=== PATIENT | female | born 2000 | race Caucasian/White ===

== ENCOUNTER 2020-08-23 13:23 | Emergency (ER) | payer OTHER ==
--- OUTSIDE RECORDS SUMMARY | 2020-08-23 13:27 | XMS REPORT | Continuity of Care Document ---
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 Family History Family Member Diagnosis Comments Start Date Stop Date Source Mother Family history of [facility] [place] Bipolar affective Physici ans disorder in remission Social History Smoking Status Start Date Stop Date Source Never smoker [facility] Medications Ordered Filled Start Stop Current Ordering Indication Dosage Frequency Signature Comments Components Source Medication Medication Date Date Medication? Clinician (SIG) Name Name Citalopram Citalopram 2017-05 Yes HALEY Take one Univers Hydrobromid Hydrobromid 0-16 SHAILA and half ity of e 20 MG e 20 MG 00:00: M.D. tabs daily [place] Oral Tablet Oral Tablet 00 for P hysici anxiety ans Vital Signs Vital Name Observation Time Observation Value Comments Source BP Systolic 2018-03-02 98 mm[Hg] Location: [facility] 10:07:00 Position: [place] Physician s Sitting BP Diastolic 2018-03-02 62 mm[Hg] Location: [facility] 10:07:00 Position: [place] Physician s Sitting Height 2018-03-02 61.25 [in_us] [facility] 10:07:00 [place] Physician s Weight 2018-03-02 41.7 kg University 10:07:00 [place] Physician s Body Mass Index 2018-03-02 17.23 kg/m2 University o f Calculated 10:07:00 [place] Physician s Heart Rate 2018-03-02 75 /min [facility] of 10:07:00 [place] Physician s Respiration Rate 2018-03-02 20 /min Quality: Normal Universi ty of 10:07:00 [place] Physician s BP Systolic 2017-10-20 102 mm[Hg] Location: [facility] :27:00 Position: [place] Physician s Sitting BP Diastolic 2017-10-20 70 mm[Hg] Location: [facility] :27:00 Position: [place] Physician s Sitting Height 2017-10-20 60.43 [in_us] [facility] 10:27:00 [place] Physician s Weight 2017-10-20 91.8 [lb_av] University 10:27:00 [place] Physician s Body Mass Index 2017-10-20 17.67 kg/m2 University o f Calculated 10:27:00 [place] Physician s Heart Rate 2017-10-20 75 /min University 10:27:00 [place] Physician s Respiration Rate 2017-10-20 18 /min Quality: Normal Universi ty of 10:27:00 [place] Physician s BP Systolic 2017-06-22 127 mm[Hg] Location: [facility] 09:47:00 Position: [place] Physician s Sitting BP Diastolic 2017-06-22 70 mm[Hg] Location: [facility] 09:47:00 Position: [place] Physician s Sitting Height 2017-06-22 60.43 [in_us] [facility] of 09:47:00 [place] Physician s Weight 2017-06-22 90 [lb_av] University 09:47:00 [place] Physician s Body Mass Index 2017-06-22 17.33 kg/m2 University o f Calculated 09:47:00 [place] Physician s Temperature 2017-06-22 97.7 [degF] University :47:00 [place] Phys[facility] s Heart Rate 2017-06-22 71 /min University :47:00 [place] Physician s Respiration Rate 2017-06-22 14 /min [facility] :47:00 [place] Physician s Procedures This patient has no known procedures. Encounters Start End Encounter Admission Attending Care Care Encounter Source Date/Time Date/Time Type Type Clinicians Facility Department ID 2020-08-21 2020-08-21 Emergency [facility] [id number] [place] 00:00:00 00:00:00 [place] [address] 2020-08-152020-08-15 Outpatient HEALY, [facility] [id number] Access 08:00:00 08:00:00 [facility] 2020-08-15 2020-08-15 Outpatient HEALY, [facility] [id number] Access 00:00:00 00:00:00 [facility] 2020-08-07 2020-08-07 Outpatient HEALY, [facility] [id number] Access 12:30:00 12:30:00 [facility] 2020-07-30 2020-07-30 Outpatient HEALY, [facility] [id number] Access 12:00:00 12:00:00 [facility] 2020-07-30 2020-07-30 Outpatient HEALY, [facility] [id number] Access 00:00:00 00:00:00 [facility] 2018-03-02 2018-03-02 [id number] Univers 10:00:00 10:00:00 t; HALEY Multi-Speci i ty of Matthias LINTON [facility] Diamond DE LEON Physicdiamond [address] 2018-01-20 2018-01-20 Cristal LINTON [facility] [id number] Univers 09:30:00 09:30:00 t; crystal DE LEON M.D. [place] Jatinder DE LEON M.D. ans 2017-10-20 2017-10-20 Cristal LINTON [facility] [id number] Univers 10:30:00 10:30:00 t; HALEY Multi[facility]Speci [facility] [place] Diamond DE LEON Physici M.D. [address] 2017-06-22 2017-06-22 [facility] [id number] Univers 09:30:00 09:30:00 t; HALEY Multi-Speci i ty of Matthias LINTON [facility] Diamond DE LEON [address]icdiamond [address] ans 2017-05-19 2017-05-19 AFSANEH Singletary [facility] [id number] Univers 08:30:00 08:30:00 t; JAVON BHATT [facility] Physici ans 2016-12-30 2016-12-30 Cristal LINTON [facility] [id number] Univers 10:00:00 10:00:00 t; crystal DE LEON M.D. [place] Jatinder DE LEON M.D. ans 2016-12-01 2016-12-01 Cristal LINTON, AFSANEH UTP [id number] Univers 11:30:00 11:30:00 t; crystal DE LEON M.D. [place] Jatinder DE LEON M.D. ans 2016-10-29 2016-10-29 Cristal LINTON, [facility] UTP [id number] Univers 09:30:00 09:30:00 t; crystal DE LEON M.D. [place] Jatinder DE LEON M.D. ans 2016-09-01 2016-09-01 Cristal LINTON, [facility] UTP [id number] Univers 09:30:00 09:30:00 t; crystal DE LEON M.D. [place] Jatinder DE LEON M.D. ans 2016-07-02 2016-07-02 Cristal LINTON, [facility] UTP [id number] Univers 10:30:00 10:30:00 t; crystal DE LEON M.D. [place] Jatinder DE LEON M.D. ans 2016-06-09 2016-06-09 Cristal LINTON, [facility] UTP [id number] Univers 10:00:00 10:00:00 t; crystal DE LEON M.D. [place] Jatinder DE LEON M.D. ans 2016-05-21 2016-05-21 Cristal LINTON [facility] UTP [id number] Univers 11:00:00 11:00:00 t; crystal DE LEON M.D. [place] Jatinder DE LEON M.D. ans 2016-04-21 2016-04-21 Cristal LINTON, AFSANEH UTP [id number] Univers 10:30:00 10:30:00 t; crystal DE LEON M.D. [place] ALLISON, Physici M.D. ans 2016-03-31 2016-03-31 Cristal LINTON, AFSANEH UTP [id number] Univers 11:30:00 11:30:00 t; crystal DE LEON M.D. [place] Jatinder DE LEOND. ans 2016-03-18 2016-03-18 [facility] UTP [id number] Univers 09:30:00 09:30:00 t; crystal DE LEON M.D. [place] ALLISON, Physici M.D. [facility] 2016-02-26 2016-02-26 Valeriejessica AFSANEH LINTON UTP [id number] Univers 11:30:00 11:30:00 t; crystal DE LEON M.D. [place] ALLISON, Physici M.D. [facility] 2016-02-18 2016-02-18 [facility] UTP [id number] Univers 13:00:00 13:00:00 t; crystal DE LEON M.D. [place] ALLISON, Physici M.D. [facility] Results This patient has no known results.
[2020-08-23 13:55] LABS: Absolute Lymphocytes (CBC) 2.8 K/uL (0.7-4.9); Basophils % 0.5 % (0-1.3); Hematocrit 35.3 % (36.0-45.0); Lymphocytes % 29.2 % (15.3-44.8); MPV 8.5 fL (7.6-11.3); RBC Red Blood Cell Count 3.91 M/uL (3.86-4.86)
[2020-08-23 14:36] LABS: BUN Blood Urea Nitrogen 9 mg/dL (7-18); Bicarbonate 22 mmol/L (21-32); Glucose Level 96 mg/dL (74-106); HCG, Quantitative 3468 mIU/mL (1-3); Potassium 3.6 mmol/L (3.5-5.1); Sodium Level 138 mmol/L (136-145)
[2020-08-23] MEDS ORDERED: MORPHINE 4 MG/ML SYR ONE (14:38)
[2020-08-23] MEDS ORDERED: ONDANSETRON 4 MG/2 ML VIAL ONE (14:38)
--- NOTE | 2020-08-23 15:47 | RAD REPORT ---
EXAM DESCRIPTION: US - OB Limited - 08/23/2020 3:09 pm CLINICAL HISTORY: VAGINAL BLEEDING Cramping and pelvic pain. COMPARISON: <Comparisons> FINDINGS: A limited examination was requested by the emergency room physician. Cystic areas are seen within the fundal endometrium. The endometrial stripe measures 23 mm. There is a diffuse heterogenous appearance to the entire endometrium throughout the canal or the level of the cervix. Both ovaries are normal in size, shape and echotexture. The right ovary measures 1.6 x 1.5 cm. Left o vary measures 2.4 x 2.3 cm. Polypoid lesion is present along the dependent portion of the bladder measuring 27 x 24 mm. IMPRESSION: A normal IUP is not seen. Multi cystic abnormality of the endometrium is seen which rais es concern for molar . Recommend correlation with HCG levels. Polypoid lesion along the dependent portion of the bladder measures 27 x 24 mm. This could represent debris, blood clot or mass. Direct visualization would be suggested for further evaluation.
[2020-08-23] MEDS ORDERED: OXYTOCIN/LR 20 UNIT/1,000 ML BAG IV SCH (17:00)
[2020-08-23] MEDS ORDERED: METHYLERGONOVINE 0.2MG/ML AMP IM ONE ×2 (17:00→17:08)
--- NOTE | 2020-08-23 19:03 | ER ---
Nurse's Notes [facility] Name: Jimena Rodriguez Age: 20 yrs Sex: Female : 2000 Arrival Date: 08/23/2020 Time: 13:27 Bed 3 Private MD: Diagnosis: Incomplete spontaneous without complication Presentation: 08/23 13:30 Chief complaint: Patient states: is approx 12 weeks , has been having light iw bleeding X 3 days, was told she was having a miscarriage, started having heavy bleeding and cramping about 20 minutes ago. Coronavirus screen: At this time, the client does not indicate any symptoms associated with coronavirus-19. Ebola Screen: Patient negative for fever greater than or equal to 101.5 degrees Fahrenheit, and additional compatible Ebola Virus Disease symptoms Patient denies exposure to infectious person. Patient denies travel to an Ebola-affected area in the 21 days before illness onset. No symptoms or risks identified at this time. Initial Sepsis Screen: Does the patient meet any 2 criteria? No. Patient's initial sepsis screen is negative. Does the patient have a suspected source of infection? No. Patient's initial sepsis screen is negative. Risk Assessment: Do you want to hurt yourself or someone else? Patient reports no desire to harm self or others. Onset of symptoms was August 23, 2020. 13:30 Method Of Arrival: Wheelchair iw 13:30 Acuity: POLLO 2 iw CEO NA: 13:32 LMP 05/24/2020 iw 14:59 2, Full Term 1, Premature 0, 0, Living 1 kdr Historical: - Allergies: 13:32 No Known Allergies; iw - Home Meds: 13:32 None [Active]; iw - PMHx: 13:32 None; iw - PSHx: 13:32 ; iw - Immunization history:: Adult Immunizations not up to date. - Social history:: Smoking status: Patient denies any tobacco usage or history of. Screenin:45 Abuse screen: Denies threats or abuse. Denies injuries from another. Nutritional jl7 screening: No deficits noted. Tuberculosis screening: No symptoms or risk factors identified. Fall Risk IV access (20 points). Total Sesay Fall Scale indicates No Risk (0-24 pts). Assessment: 13:45 Obstetrical Assessment: Patient reports abdominal cramping. General: Appears in no jl7 apparent distress. uncomfortable, Behavior is calm, cooperative, appropriate for age. Pain: Complains of pain in right lower quadrant and left lower quadrant Pain currently is 10 out of 10 on a pain scale. Quality of pain is described as crampy, Is intermittent. Neuro: Level of Consciousness is awake, alert, obeys commands, Oriented to person, place, time, situation. Cardiovascular: Patient's skin is warm and dry. Respiratory: Airway is patent Respiratory effort is even, unlabored, Respiratory pattern is regular, symmetrical. GI: Patient currently denies nausea, vomiting. : Reports vaginal bleeding that is bright red, with clots, heavy flow. Derm: Skin is pink, warm \T\ dry. 14:30 Reassessment: Dr. Poe at bedside. jl7 15:30 Reassessment: Dr. Richmond at bedside. jl7 16:25 Reassessment: Dr. Richmond VO if pt is discharged for Dr. Poe to write for Cytotec 100 jl7 mcg every 4 hours x 4 pills, Dr. Poe notified. 17:30 Reassessment: Patient appears in no apparent distress at this time. Patient and/or jl7 family updated on plan of care and expected duration. Pain level reassessed. Patient is alert, oriented x 3, equal unlabored respirations, skin warm/dry/pink. Patient denies pain at this time. Patient states feeling better. 18:30 Reassessment: Patient appears in no apparent distress at this time. No changes from jl7 previously documented assessment. Patient and/or family updated on plan of care and expected duration. Pain level reassessed. Patient is alert, oriented x 3, equal unlabored respirations, skin warm/dry/pink. 19:22 Reassessment: Patient and/or family updated on plan of care and expected duration. Pain ea level reassessed. Patient is alert, oriented x 3, equal unlabored respirations, skin warm/dry/pink. Discharge instruction given to patient verbalized the understanding of instruction. Pt left ED ambulatory accompanied by significant other. Vital Signs: 13:30 BP 122 / 82; Pulse 116; Resp 16 S; Temp 97.8; Pulse Ox 100% on R/A; Weight 47.17 kg; iw Height 5 ft. 1 in. (154.94 cm); Pain 10/10; 14:30 BP 118 / 65; Pulse 95; Resp 17; Pulse Ox 100% ; jl7 16:30 BP 115 / 64; Pulse 101; Resp 19; Pulse Ox 100% ; jl7 17:30 BP 112 / 62; Pulse 99; Resp 15; Pulse Ox 100% ; jl7 18:30 BP 113 / 61; Pulse 94; Resp 16; Pulse Ox 100% ; jl7 19:00 BP 113 / 60; Pulse 98; Resp 18; Temp 98; Pulse Ox 99% ; ea 13:30 Body Mass Index 19.65 (47.17 kg, 154.94 cm) iw ED Course: 13:27 Patient arrived in ED. as 13:29 Henry Poe MD is Attending Physician. kdr 13:31 Triage completed. iw 13:32 Arm band placed on. iw 13:33 Nasir Orr, REJI is Primary Nurse. jl7 13:45 Patient has correct armband on for positive identification. Placed in gown. Bed in low jl7 position. Call light in reach. Side rails up X 1. monitor and storage bin tender on. Pulse ox on. NIBP on. Warm blanket given. 13:50 Initial lab(s) drawn, by me, sent to lab. Inserted saline lock: 22 gauge in right jl7 antecubital area, using aseptic technique. Blood collected. 15:10 US OB Limited In Process Unspecified. EDMS 15:30 Assist provider with pelvic exam: Set up pelvic tray. Performed by Henry castillo7 Patient tolerated well. 16:30 Assist provider with pelvic exam: Set up pelvic tray. Performed by Warren castillo7 Specimens sent to lab. POC passed, sent to pathology, Patient tolerated poorly. 19:00 Warren Richmond MD is Referral Physician. kdr 19:24 No provider procedures requiring assistance completed. IV discontinued, intact, ea bleeding controlled, No redness/swelling at site. Pressure dressing applied. Administered Medications: 16:45 Drug: Pitocin 20 units Route: IV; Rate: calculated rate; Site: right antecubital; jl7 19:17 Follow up: Response: No adverse reaction jl7 16:56 Drug: METHERgine 0.2 mg Route: IM; Site: right deltoid; jl7 19:17 Follow up: Response: No adverse reaction jl7 Outcome: 19:02 Discharge ordered by . rosamaria 19:25 Discharged to home ambulatory, with family. riky 19:25 Condition: stable 19:25 Discharge instructions given to patient, Instructed on discharge instructions, follow up and referral plans. medication usage, Demonstrated understanding of instructions, follow-up care, medications, Prescriptions given X 1. 19:25 Patient left the ED. riky Signatures: Dispatcher [employer] EDMS Henry Poe MD MD kdr Martinez, Amelia as Williams, Irene, Nasir Tolentino RN, RN RN jl7 Britta Ford RN RN riky
--- NOTE | 2020-08-23 19:03 | EDPHYS ---
Physician Documentation [facility] Name: Jimena Rodriguez Age: 20 yrs Sex: Female : 2000 Arrival Date: 08/23/2020 Time: 13:27 Bed 3 Private MD: ED Physician Henry Poe HPI: 08/23 14:59 This 20 yrs old Female presents to ER via Wheelchair with complaints of kdr Vaginal Bleeding, + Preg <12wks. 14:59 The patient presents to the emergency department with vaginal bleeding, that is kdr moderate, with clots. The estimated gestational age is 13 weeks. course: Ultrasound: the patient had an ultrasound, on . Previous pregnancies: in previous pregnancies patient has had vaginal delivery. Associated signs and symptoms: The patient has no apparent associated signs or symptoms. The patient has not experienced similar symptoms in the past. The patient has been recently seen by a physician: The patient has been bleeding intermittently on Thursday. 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 - Social history:: Smoking status: Patient denies any tobacco usage or history of. ROS: 18:05 Constitutional: Negative for fever, chills, and weight loss, Eyes: Negative for injury, kdr pain, redness, and discharge, ENT: Negative for injury, pain, and discharge, Neck: Negative for injury, pain, and swelling, Cardiovascular: Negative for chest pain, palpitations, and edema, Respiratory: Negative for shortness of breath, cough, wheezing, and pleuritic chest pain, Back: Negative for injury and pain, MS/Extremity: Negative for injury and deformity, Skin: Negative for injury, rash, and discoloration, Neuro: Negative for headache, weakness, numbness, tingling, and seizure activity. Psych: Negative for depression, anxiety, suicide ideation, homicidal ideation, and hallucinations, Allergy/Immunology: Negative for hives, rash, and allergies, Endocrine: Negative for neck swelling, polydipsia, polyuria, polyphagia, and marked weight changes, Hematologic/Lymphatic: Negative for swollen nodes, abnormal bleeding, and unusual bruising. 18:05 Abdomen/GI: Positive for abdominal pain, nausea, Negative for constipation, abdominal cramps, abdominal distension, anorexia, black/tarry stool, rectal pain, rectal bleeding, bowel incontinence. 18:05 : Positive for vaginal bleeding, Negative for injury or acute deformity, urinary symptoms, urinary frequency, small amounts, hematuria, pelvic pain, flank pain, burning with urination, difficulty urinating, bladder incontinence, foul smelling urine, vaginal discharge, vaginal itching, menstrual abnormality, missed period, testicular pain Exam: 18:05 Constitutional: This is a well developed, well nourished patient who is awake, alert, kdr and in no acute distress. Head/Face: Normocephalic, atraumatic. Eyes: Pupils equal round and reactive to light, extra-ocular motions intact. Lids and lashes normal. Conjunctiva and sclera are non-icteric and not injected. Cornea within normal limits. Periorbital areas with no swelling, redness, or edema. Neck: Trachea midline, no thyromegaly or masses palpated, and no cervical lymphadenopathy. Supple, full range of motion without nuchal rigidity, or vertebral point tenderness. No Meningismus. Chest/axilla: Normal chest wall appearance and motion. Nontender with no deformity. No lesions are appreciated. Cardiovascular: Regular rate and rhythm with a normal S1 and S2. No gallops, murmurs, or rubs. Normal PMI, no JVD. No pulse deficits. Respiratory: Lungs have equal breath sounds bilaterally, clear to auscultation and percussion. No rales, rhonchi or wheezes noted. No increased work of breathing, no retractions or nasal flaring. Back: No spinal tenderness. No costovertebral tenderness. Full range of motion. Skin: Warm, dry with normal turgor. Normal color with no rashes, no lesions, and no evidence of cellulitis. MS/ Extremity: Pulses equal, no cyanosis. Neurovascular intact. Full, normal range of motion. Neuro: Awake and alert, GCS 15, oriented to person, place, time, and situation. Cranial nerves II-XII grossly intact. Motor strength 5/5 in all extremities. Sensory grossly intact. Cerebellar exam normal. Normal gait. Psych: Awake, alert, with orientation to person, place and time. Behavior, mood, and affect are within normal limits. 18:05 Abdomen/GI: Inspection: abdomen appears normal, Bowel sounds: normal, active, Palpation: soft, mild abdominal tenderness, in the suprapubic area, right lower quadrant and left lower quadrant, Rectal exam: 18:05 : Pelvic Exam: External exam: is normal, Speculum exam: severe bleeding, bimanual exam reveals os that is closed, discharge, is not appreciated, the nurse was present for the exam. Vital Signs: 13:30 BP 122 / 82; Pulse 116; Resp 16 S; Temp 97.8; Pulse Ox 100% on R/A; Weight 47.17 kg; iw Height 5 ft. 1 in. (154.94 cm); Pain 10/10; 14:30 BP 118 / 65; Pulse 95; Resp 17; Pulse Ox 100% ; jl7 16:30 BP 115 / 64; Pulse 101; Resp 19; Pulse Ox 100% ; jl7 17:30 BP 112 / 62; Pulse 99; Resp 15; Pulse Ox 100% ; jl7 18:30 BP 113 / 61; Pulse 94; Resp 16; Pulse Ox 100% ; jl7 19:00 BP 113 / 60; Pulse 98; Resp 18; Temp 98; Pulse Ox 99% ; ea 13:30 Body Mass Index 19.65 (47.17 kg, 154.94 cm) iw MDM: 18:05 Data reviewed: vital signs, nurses notes, lab test result(s), radiologic studies. kdr Counseling: I had a detailed discussion with the patient and/or guardian regarding: the historical points, exam findings, and any diagnostic results supporting the discharge/admit diagnosis, lab results, radiology results. Physician consultation: Warren Richmond MD regarding consult, patient's condition, need to come to ED to see patient, and will see patient in ED, shortly. 19:02 Patient medically screened. kdr 08/23 13:29 Order name: Abo/rh Typing kdr 08/23 13:29 Order name: Basic Metabolic Panel; Complete Time: 14:54 kdr 08/23 13:29 Order name: CBC with Diff; Complete Time: 14:54 kdr 08/23 13:29 Order name: Bhcg; Complete Time: 14:54 [facility] 08/23 14:54 Order name: US OB Limited kdr 08/23 17:41 Order name: ABO/RH no charge EDMA 08/23 13:29 Order name: IV Saline Lock; Complete Time: 16:07 kdr 08/23 13:29 Order name: Labs collected and sent; Complete Time: 16:08 [facility] 08/23 13:29 Order name: NPO; Complete Time: 16:08 [facility] Administered Medications: 16:45 Drug: Pitocin 20 units Route: IV; Rate: calculated rate; Site: right antecubital; 7 19:17 Follow up: Response: No adverse reaction 7 16:56 Drug: METHERgine 0.2 mg Route: IM; Site: right deltoid; 7 19:17 Follow up: Response: No adverse reaction 7 Disposition: 08/23/20 19:02 Discharged to Home. Impression: Incomplete spontaneous without complication. - Condition is Stable. - Discharge Instructions: Miscarriage, [id number]. - Prescriptions for Cytotec 100 mcg Oral tablet - take 1 tablet by ORAL route every 4 hours; 4 tablet. - Medication Reconciliation Form, Thank You Letter form. - Follow up: Warren Richmond MD; When: 2 - 3 days; Reason: If symptoms return, Further diagnostic work-up, Recheck today's complaints, Continuance of care, Re-evaluation by your physician. Follow up: Private Physician; When: 2 - 3 days; Reason: If symptoms return, Further diagnostic work-up, Recheck today's complaints, Continuance of care, Re-evaluation by your physician. - Problem is an ongoing problem. - Symptoms have improved. Signatures: Dispatcher [employer] [facility] Henry Poe MD MD kdr Faye Catherine RN RN iw Leal, Jahala, RN RN jl7 Britta Ford RN RN ea Corrections: (The following items were deleted from the chart) 19:25 19:02 08/23/2020 19:02 Discharged to Home. Impression: Incomplete spontaneous ea without complication. Condition is Stable. Forms are Medication Reconciliation Form, Thank You Letter, Antibiotic Education, Prescription Opioid Use. Follow up: Warren Richmond; When: 2 - 3 days; Reason: If symptoms return, Further diagnostic work-up, Recheck today's complaints, Continuance of care, Re-evaluation by your physician. Follow up: Private Physician; When: 2 - 3 days; Reason: If symptoms return, Further diagnostic work-up, Recheck today's complaints, Continuance of care, Re-evaluation by your physician. Problem is an ongoing problem. Symptoms have improved. kdr
--- NOTE | 2020-08-23 21:07 | PREOPHP ---
Date of Admission: 08/23/2020 History Of Present Illness: Jimena Rodriguez is a 20-year-old, 2, para 1, 13 weeks with intrauterine demise. The patient noted that the intrauterine contents were streaking over the last few weeks. She has been to the emergency room and they told her she only had a 6 week to 7 week size uterus and there was no signs of cardiac activity. She was awaiting spontaneous miscarri age. She was fishing today with her , began bleeding, and came to our emergency room. The pa tient is Rh negative. She received RhoGAM 2 days ago in the other emergency room. She was passing f airly large clots. Physical Examination: General: The patient is completely lucid and alert. Vital Signs: Normal. Pelvic: Cervical os dilated with products of conception in the os. With a ring clamp, we got out al l that we could. I think there is still might be some tissue above the os, but the ultrasound done h ere in the emergency room showed only what they thought was probably blood in the endometrial cavity. Assessment And Plan: I have ordered Methergine 0.2 mg IM as well as IV drip Pitocin and over the nex t 2-3 hours if her bleeding subsides, then we will know that the uterus is basically empty. If not, we will do a D and C. The patient's informed and they agree with this approach. The patient will be kept n.p.o. until we know whether our intervention will be successful or not. They live in [place]. They will call their [employer] tomorrow and inform her of what happens if they can follow up on an as needed basis. Right now, it looks like we are dealing with incomplete AB, possibly compl eted here in the ER, observation for the next 3 hours or so and then we will dismiss. I will send her home with Cytotec to be taken 100 mcg every 4 hours for 4 additional doses and she can follow up with her [employer] tomorrow. RISA/NAZARIO Voice ID: [id number]
[2020-08-24 05:52] VITALS: BP 122/82; TEMP 97.8; O2SAT 100
== END 2020-08-23 19:25 | disposition home or self-care (01) ==
LOC: ER 13:23
DX: O03.4 Incomplete spontaneous abortion without complication (principal)
CPT/HCPCS: 85025; 80048; 36415; 86900; 86901; 88305; 84702; 76815; 96372; 96374; 99285; J2210; J2590; J2405